=== PATIENT | male | born 1960 | race Caucasian/White ===

== ENCOUNTER → 2020-08-22 | Outpatient (CLI) | payer OTHER ==
--- NOTE | 2020-08-22 21:27 | CT ---
EXAMINATION TYPE: CT abdomen pelvis w con DATE OF EXAM: 08/22/2020 COMPARISON: None HISTORY: Umbilical and right inguinal hernia. CT DLP: 1090.6 mGycm CONTRAST: CT scan of the abdomen and pelvis is performed with Oral Contrast and with IV Contrast, patient injec larissa with 100ml mL of Isovue 300. FINDINGS: LUNG BASES-: No visible nodule. No infiltrate. LIVER/GB: No calcified gallstones. No space occupying hepatic lesion. Biliary tree is of normal ca liber. PANCREAS: There is a abnormal decreased attenuation involving the pancreatic tail. While this could r eflect inflammatory process in infiltrative mass is difficult to exclude. MRI of the pancreas is advi sed. Correlate with amylase and lipase. The remainder of the pancreas is unremarkable. SPLEEN: No splenic enlargement. No lesion seen. ADRENALS: No nodule. No thickening. KIDNEYS/BLADDER: No hydronephrosis. No nephrolithiasis. No distinct renal mass. Urinary bladder g rossly unremarkable. BOWEL: Normal appendix. Normal bowel caliber. No inflammation. GENITAL ORGANS: No gross abnormality. LYMPH NODES: No greater than 1cm abdominal or pelvic lymph nodes are appreciated. AORTA: No significant abnormality. OSSEOUS STRUCTURES: No significant abnormality is seen. OTHER there are bilateral fat-containing inguinal hernias. Small fat-containing umbilical hernia. IMPRESSION: 1. There is a abnormal decreased attenuation involving the pancreatic tail. While this could reflect inflammatory process in infiltrative mass is difficult to exclude. MRI of the pancreas is advised. Co rrelate with amylase and lipase.
== END | disposition home or self-care (01) ==
LOC: RADCTMAIN 14:43
PROVIDERS: ATTEND Surgery
DX: K40.90 Unilateral inguinal hernia, without obstruction or gangrene, not specified as recurrent (principal); K42.9 Umbilical hernia without obstruction or gangrene
CPT/HCPCS: 74177; Q9967

== ENCOUNTER → 2020-09-19 | Outpatient (CLI) | payer OTHER ==
--- NOTE | 2020-09-20 05:42 | MR ---
EXAMINATION TYPE: MR pancreas wo/w con DATE OF EXAM: 09/19/2020 COMPARISON: CT abdomen pelvis 08/22/2020 HISTORY: pancreatic mass CONTRAST: Standard multiplanar, multisequence MRI departmental protocol utilizing 9 mL intravenous Gadavist iam olinium contrast. The liver shows no focal defect. The bile ducts are nondilated. Gallbladder appears normal. There is no pleural effusion. There is no sign of pericardial effusion. Spleen is intact. There is no adrenal mass. Kidneys show normal size and contour. There is no hydronephrosis. There is no retroperitoneal adenopathy. There is on the T1 images a low signal area in the body of the pancreas towards the tail which has sl ight increased signal on the T2 images. This area measures 4.7 x 3 cm. The distal pancreatic duct jeremy ears normal. Pancreatic duct is not identified within the mass. There appears to be some ductal ectas ia in the tail of the pancreas on the axial T2 images. The contrast images show some delayed enhancem ent of the mass. There appears to be some deviation of the splenic vein around the posterior aspect of the mass. There is normal enhancement pattern of the portal venous system. There is no adrenal mass. Kidneys show normal size and contour. There is no hydronephrosis. There is normal renal enhancement. There is no ascites.. IMPRESSION: There is mass in the body of the pancreas towards the tail which is apparently compressing the pancre atic duct and causing proximal ductal obstruction and ductal ectasia at the tail of the pancreas. The re is also some mass effect upon the splenic vein. 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 Follow-up recommended. The size is not changed compared to the CT scan of 08/22/2020. I do not see surrounding inflammatory changes in the peripancreatic fat to suggest pancreatitis.
== END | disposition home or self-care (01) ==
LOC: RADMRIMAIN 12:01
PROVIDERS: ATTEND Surgery
DX: K86.9 Disease of pancreas, unspecified (principal)
CPT/HCPCS: 74183; A9585